=== PATIENT | female | born 1995 | race Caucasian/White ===

== ENCOUNTER → 2019-11-08 08:06 | Outpatient (CLI) | payer OTHER | END | disposition home or self-care (01) | LOC: D.NM 08:06 | PROVIDERS: ATTEND Family Medicine | DX: K82.9 Disease of gallbladder, unspecified (principal) ==

== ENCOUNTER 2020-02-14 09:05 | Emergency (ER) | payer OTHER ==
[~2020-02-14] VITALS: Ht 167.6 cm; Wt 69.5 kg
[2020-02-14 09:14] VITALS: Ht 167.6 cm; Wt 69.5 kg
[2020-02-14] MEDS ORDERED: SYNTHROID112 MCG PO (09:17)
[2020-02-14] MEDS ORDERED: ZYRTEC10 MG PO (10:27)
[2020-02-14] MEDS ORDERED: FLUTICASONE PRO16 GM NASAL (10:27)
[2020-02-14 10:50] VITALS: BP 105/77
== END 2020-02-14 10:50 | disposition home or self-care (01) ==
LOC: D.ER 09:05
DX: R51 Headache (principal); J30.9 Allergic rhinitis, unspecified; I95.9 Hypotension, unspecified

== ENCOUNTER 2020-03-05 15:12 | Emergency (ER) | payer OTHER ==
[~2020-03-05] VITALS: Ht 167.6 cm; Wt 70.3 kg
[~2020-03-05 15:12] MED LIST: FLUTICASONE PRO16 GM NASAL; SYNTHROID112 MCG PO; ZYRTEC10 MG PO
[2020-03-05 15:19] VITALS: Ht 167.6 cm; Wt 70.3 kg
[2020-03-05] MEDS ORDERED: ARMOUR THYROID30 MG (15:22)
[2020-03-05 16:35] LABS: BASOPHILS 0.6 % (0-2); EOSINOPHILS 2.9 % (0-7); HEMATOCRIT 38.4 % (36.0-48.0); HEMOGLOBIN 12.7 g/dL (12-16); IMMATURE GRANULOCYTES 0.3 % (0-5); LYMPHOCYTES 27.7 % (15-50); MCH 29.9 pg (26.0-34.0); MCHC 33.1 g/dL (31.0-37.0); MCV 90.4 fL (80.0-100.0); MEAN PLATELET VOLUME 9.6 fL (7.4-10.4); MONOCYTES 8.2 % (2-11); NEUTROPHILS 60.3 % (40-80); PLATELET COUNT 228 10x3/uL (130-400); RBC 4.25 10x6/uL (4.00-5.40); RDW 13.4 % (11.5-14.5); WBC 6.6 10x3/uL (4.8-10.8)
[2020-03-05 16:43] LABS: CALC OSMOLALITY 275 mosm/kg (275-300); CALCIUM 7.8 mg/dL (8.5-10.1); CARBON DIOXIDE 31.8 mmol/L (21.0-32.0); CHLORIDE - SERUM 105 mmol/L (98-107); CREATININE - SERUM 0.9 mg/dL (0.6-1.3); GLUCOSE 91 mg/dL (74-106); POTASSIUM - SERUM 3.4 mmol/L (3.5-5.1); SODIUM 139 mmol/L (136-145); UREA NITROGEN 8 mg/dL (7-18); eGFR NON AFRICAN AMERICAN 81 mL/min (90-120)
[2020-03-05 16:49] LABS: ALKALINE PHOSPHATASE 52 U/L (30-120); ALT (SGPT) 17 U/L (10-68); BILIRUBIN - TOTAL 0.65 mg/dL (0.2-1.3); PROTEIN - SERUM 7.3 g/dL (6.4-8.2)
[2020-03-05 16:52] LABS: BILIRUBIN NEGATIVE (NEGATIVE); KETONE NEGATIVE (NEGATIVE); NITRITE NEGATIVE (NEGATIVE); UROBILINOGEN NORMAL mg/dL (< 2)
[2020-03-05 17:42] VITALS: BP 115/75
== END 2020-03-05 17:44 | disposition home or self-care (01) ==
LOC: D.ER 15:12
PROVIDERS: Family Medicine
DX: R51 Headache (principal); E06.3 Autoimmune thyroiditis; I10 Essential (primary) hypertension; T38.1X5A Adverse effect of thyroid hormones and substitutes, initial encounter